=== PATIENT | female | born 1990 | race Caucasian/White ===

== ENCOUNTER 2019-10-31 17:19 | Emergency (ER) | payer MEDICAID, OTHER ==
[~2019-10-31] VITALS: Ht 167.6 cm; Wt 133.0 kg
[~2019-10-31 17:19] MED LIST: IBUP-1984 PO
[2019-10-31 17:24] VITALS: BP 147/96
[2019-10-31] MEDS ORDERED: ibuprofen tablet 400 MG TABLET PO ONE (18:10)
[2019-10-31] MEDS ORDERED: acetaminophen 325mg tablet PO ONE (18:10)
[2019-10-31] MEDS ORDERED: proparacaine 0.5% ophthalmic drops 15ml EACHEYE ONE (18:10)
[2019-10-31] MEDS ORDERED: ERYT1OIN6 LEFTEYE (18:50)
[2019-10-31] MEDS ORDERED: erythromycin ophthalmic ointment 1gm tube LEFTEYE ONE (18:50)
--- NOTE | 2019-10-31 19:04 | NUR ---
pt given eye dressing supplies and instructions, pt driving so requested not to have it place yet. pt with no pain.
== END 2019-10-31 19:05 | disposition home or self-care (01) ==
LOC: ER 17:19
DX: S05.01XA Injury of conjunctiva and corneal abrasion without foreign body, right eye, initial encounter (principal); Z79.2 Long term (current) use of antibiotics; Z79.899 Other long term (current) drug therapy; X58.XXXA Exposure to other specified factors, initial encounter; Y93.89 Activity, other specified; Y92.89 Other specified places as the place of occurrence of the external cause; Y99.8 Other external cause status
CPT/HCPCS: 99284

== ENCOUNTER 2022-09-25 18:38 | Emergency (ER) | payer OTHER, MEDICAID ==
[~2022-09-25] VITALS: Ht 167.6 cm; Wt 149.1 kg
[2022-09-25 18:54] VITALS: BP 150/102
[2022-09-25] MEDS ORDERED: IBUP-1984 PO (21:21)
== END 2022-09-25 21:28 | disposition home or self-care (01) ==
LOC: ER 18:39
DX: S93.402A Sprain of unspecified ligament of left ankle, initial encounter (principal); S80.02XA Contusion of left knee, initial encounter; X58.XXXA Exposure to other specified factors, initial encounter; Y93.89 Activity, other specified; Y92.89 Other specified places as the place of occurrence of the external cause; Y99.8 Other external cause status
CPT/HCPCS: 73564; 73610; 99284; L4360